=== PATIENT | male | born 1975 | race Caucasian/White ===

== ENCOUNTER 2022-08-01 07:16 | Emergency (ER) | payer OTHER ==
[2022-08-01] MEDS ORDERED: Sodium Chloride 0.9% 1000 ML 1,000 ML IV STA (07:41)
[2022-08-01] MEDS ORDERED: Hydromorphone 1 mg/ml Injection IV ONE (07:41)
[2022-08-01] MEDS ORDERED: Zofran 4 MG/2 ML VIAL IV ONE (07:41)
--- NOTE | 2022-08-01 07:41 | ERPHSYRPT ---
- History of Present Illness Time Seen by Provider: 08/01/22 07:25 Historian: patient Exam Limitations: no limitations Patient Subjective Stated Complaint: pt co abd pain to right side of abd since last night, no vomiting or fever Triage Nursing Assessment: pt alert, resp easy, face mask in place, able to walk in, skin w.d.p abd soft and pain with palpation Physician History: This is a 47-year-old white male patient of Dr. Donato who has had no prior abdominal surgeries but has a [employer] back stimulator implanted for chronic back pain and presents with right lower quadrant abdominal pain that began last evening and worsened throughout the night. The pain is significant enough to keep him awake throughout the night and morning. He has had no nausea and vomiting. He does not have an appetite but he is thirsty. He has had no diarrhea. He has no fevers. He has no chest pain. He is not short of breath. He has no cough. He has never had pain like this before. Patient has a history of diabetes and depression. Timing/Duration: yesterday Activities at Onset: none Quality: sharpness, stabbing Abdominal Pain Onset Location: RLQ Pain Radiation: no radiation Severity of Pain-Max: moderate Severity of Pain-Current: moderate Associated Symptoms: loss of appetite, No chest pain, No diarrhea, No fever/ch ills, No vomiting Previous symptoms: no prior history Allergies/Adverse Reactions: allopurinol Allergy (Verified 08/01/22 07:28) Home Medications: Linagliptin/Metformin HCl [Jentadueto Xr 5 mg-1,000 mg Tb] 1 ea DAILY 08/01/22 [History] Venlafaxine HCl 37.5 mg [Effexor 37.5 mg] 2 ea DAILY 08/01/22 [History] Venlafaxine HCl [Venlafaxine HCl ER] 1 ea DAILY 08/01/22 [History] Hx Tetanus, Diphtheria Vaccination/Date Given: No Hx Influenza Vaccination/Date Given: No Hx Pneumococcal Vaccination/Date Given: No Immunizations Up to Date: Yes Travel Risk - International Travel Have you traveled outside of the country in past 3 weeks: No - Coronavirus Screening Are you exhibiting any of the following symptoms?: No Close contact with a COVID-19 positive Pt in past 14-21 Days: No - Vaccine Status Have you recieved a Covid-19 vaccination: No - Review of Systems Constitutional: No Symptoms Eyes: No Symptoms Ears, Nose, & Throat: No Symptoms Respiratory: No Symptoms Cardiac: No Symptoms Abdominal/Gastrointestinal: Abdominal Pain, Appetite Changes, No Nausea, No Vomiting, No Diarrhea, No Constipation Genitourinary Symptoms: No Symptoms Musculoskeletal: No Symptoms Skin: No Symptoms Neurological: No Symptoms Psychological: No Symptoms Endocrine: No Symptoms Hematologic/Lymphatic: No Symptoms Immunological/Allergic: No Symptoms All Other Systems: Reviewed and Negative - Past Medical History Pertinent Past Medical History: Yes Endocrine Medical History: Diabetes Type II Psycho-Social History: Depression Other Medical History: nerve stimullator - Past Surgical History Past Surgical History: Yes Musculoskeletal: Orthopedic Surgery Other Surgical History: back x4,neck - Social History Smoking Status: Current some day smoker Exposure to second hand smoke: Yes Drug Use: none - Nursing Vital Signs Nursing Vital Signs: Initial Vital Signs Temperature 97.2 F 08/01/22 07:22 Pulse Rate 99 H 08/01/22 07:22 Respiratory Rate 18 08/01/22 07:22 Blood Pressure 154/89 08/01/22 07:22 O2 Sat by Pulse Oximetry 100 08/01/22 07:22 Pain Scale Pain Intensity 2 - Physical Exam General Appearance: no apparent distress, alert, anxiety Eye Exam: PERRL/EOMI, eyes nml inspection Ears, Nose, Throat Exam: normal ENT inspection, moist mucous membranes Neck Exam: normal inspection, non-tender, supple, full range of motion Respiratory Exam: normal breath sounds, lungs clear, airway intact, No chest tenderness, No respiratory distress Cardiovascular Exam: regular rate/rhythm, normal heart sounds, normal peripheral pulses Gastrointestinal/Abdomen Exam: soft, normal bowel sounds, tenderness (Right lower quadrant), guarding (Right lower quadrant), rebound (Right lower quadrant) Rectal Exam: not done Back Exam: normal inspection, normal range of motion, No CVA tenderness, No vertebral tenderness Extremity Exam: normal inspection, normal range of motion, pelvis stable Neurologic Exam: alert, oriented x 3, cooperative, trace clerk II-XII nml as tested, normal mood/affect, nml cerebellar function, nml station & gait, sensation nml Skin Exam: normal color, warm, dry Lymphatic Exam: No adenopathy SpO2 Interpretation: normal SpO2: 100 O2 Delivery: Room Air - Course Nursing assessment & vital signs reviewed: Yes Ordered Tests: Active Orders 24 hr Category Date Time Status IV Insertion STAT Care 08/01/22 07:41 Active ABDOMEN AND PELVIS W/0 CONTRAS [CT] Stat Exams 08/01/22 07:41 Completed AMYLASE Stat Lab 08/01/22 07:36 Completed CBC W DIFF Stat Lab 08/01/22 07:36 Completed CMP Stat Lab 08/01/22 07:36 Completed LIPASE Stat Lab 08/01/22 07:36 Completed UA W/RFX CULTURE Stat Lab 08/01/22 09:07 Completed Medication Summary Discontinued Medications Generic Name Dose Route Start Last Admin Trade Name Freq PRN Reason Stop Dose Admin Hydromorphone HCl 1 mg 08/01/22 07:41 08/01/22 07:56 Hydromorphone 1 Mg/1ml Inj 1 Mg/Ml Syringe IV 08/01/22 07:42 1 mg STAT ONE Administration Hydromorphone HCl Confirm 08/01/22 07:54 Hydromorphone 1 Mg/1ml Inj 1 Mg/Ml Syringe Administered 08/01/22 07:55 Dose 1 mg .ROUTE .STK-MED ONE Sodium Chloride 1,000 mls @ 999 mls/hr 08/01/22 07:41 08/01/22 10:01 Sodium Chloride 0.9% 1000 Ml IV 08/01/22 08:41 Infused .Q1H1M STA Infusion Sodium Chloride Confirm 08/01/22 07:54 Sodium Chloride 0.9% 1000 Ml Administered 08/01/22 07:55 Dose 1,000 mls @ ud .ROUTE .STK-MED ONE Ondansetron HCl 4 mg 08/01/22 07:41 08/01/22 07:57 Ondansetron Hcl 4 Mg/2 Ml Vial IV 08/01/22 07:42 4 mg STAT ONE Administration Ondansetron HCl Confirm 08/01/22 07:53 Ondansetron Hcl 4 Mg/2 Ml Vial Administered 08/01/22 07:54 Dose 4 mg .ROUTE .STK-MED ONE Lab/Rad Data: Laboratory Result Diagrams 08/01/22 07:36 08/01/22 07:36 Laboratory Results 08/01/22 08/01/22 08/01/22 Range/Units 09:07 07:36 07:36 WBC 11.9 H (4.0-10.5) x10^3/uL RBC 5.59 (4.1-5.6) x10^6/uL Hgb 15.8 (12.5-18.0) g/dL Hct 47.1 (42-50) % MCV 84.3 (78-100) fL MCH 28.3 (26-32) pg MCHC 33.5 (32-36) g/dL RDW 13.9 (11.5-14.0) % Plt Count 209 (150-450) x10^3/uL MPV 8.7 (7.5-11.0) fL Gran % 68.5 H (36.0-66.0) % Immature Gran % (Auto) 0.4 (0.00-0.4) % Nucleat RBC Rel Count 0.0 (0.00-0.1) % Eos # (Auto) 0.23 (0-0.5) x10^3/uL Immature Gran # (Auto) 0.05 H (0.00-0.03) x10^3u/L Absolute Lymphs (auto) 2.58 (1.0-4.6) x10^3/uL Absolute Monos (auto) 0.81 (0.0-1.3) x10^3/uL Absolute Nucleated RBC 0.00 (0.00-0.01) x10^3u/L Lymphocytes % 21.8 L (24.0-44.0) % Monocytes % 6.8 (0.0-12.0) % Eosinophils % 1.9 (0.00-5.0) % Basophils % 0.6 (0.0-0.4) % Absolute Granulocytes 8.12 H (1.4-6.9) x10^3/uL Basophils # 0.07 (0-0.4) x10^3/uL Sodium 136 L (137-145) mmol/L Potassium 4.0 (3.5-5.1) mmol/L Chloride 102 (98-107) mmol/L Carbon Dioxide 24 (22-30) mmol/L Anion Gap 14.8 (5-15) MEQ/L BUN 12 (9-20) mg/dL Creatinine 0.94 (0.66-1.25) mg/dL Estimated GFR > 60.0 ML/MIN Glucose 219 H (74-106) mg/dL Calcium 9.0 (8.4-10.2) mg/dL Total Bilirubin 0.80 (0.2-1.3) mg/dL AST 24 (17-59) U/L ALT 29 (0-50) U/L Alkaline Phosphatase 117 (38-126) U/L Serum Total Protein 7.9 (6.3-8.2) g/dL Albumin 4.3 (3.5-5.0) g/dL Amylase 63 (30-110) U/L Lipase 106 (23-300) U/L Urinalys Dipstick Clnc MAIN LAB Urine Color YELLOW (YELLOW) Urine Appearance CLEAR (CLEAR) Urine pH 5.5 (5-6) Ur Specific [place] >=1.030 (1.005-1.025) POC Urine Protein Conf TRACE (Negative) Urine Ketones NEGATIVE (NEGATIVE) Urine Nitrite NEGATIVE (NEGATIVE) Urine Bilirubin NEGATIVE (NEGATIVE) Urine Urobilinogen 0.2 (0-1) mg/dL Urine Leukocytes NEGATIVE (NEGATIVE) Urine WBC (Auto) 0-2 (0-5) /HPF Urine RBC (Auto) 0-2 (0-2) /HPF U Epithel Cells (Auto) FEW (FEW) /HPF Urine Bacteria (Auto) RARE (NEGATIVE) /HPF Urine RBC NEGATIVE (0-5) Stu/ul Urine Mucus (Auto) SLIGHT (NEGATIVE) /HPF Ur Culture Indicated? NO Urine Glucose 500 (NEGATIVE) mg/dL - Progress Progress: improved, pain not gone completely Progress Note: 08/01/22 08:42 CAT scan of the abdomen pelvis without contrast shows a normal appendix. There is fecal stasis present. No acute intra-abdominal or intrapelvic abnormality. Counseled pt/family regarding: lab results, diagnosis, need for follow-up, rad results - Departure Departure Disposition: Home Clinical Impression: Constipation Condition: Stable Critical Care Time: No Referrals: JLUIS DONATO MD [Primary Care Provider] - Follow up/PCP as directed Additional Instructions: Drink plenty of clear liquids. Do not advance your diet until you are drinking clear liquids well. Use MiraLAX [id number]. May also obtain fleets enema [id number] and follow the directions for this medication. Increase your activity. Return to the emergency department for symptoms worsen. Follow-up with your primary care physician to make arrangements for an outpatient colonoscopy if indicated.
[2022-08-01 07:52] LABS: Absolute Neutrophil Ct (ANC) 8.12 x10^3/uL (1.4-6.9); Basophil (Absolute #) 0.07 x10^3/uL (0-0.4); Eosinophil % 1.9 % (0.00-5.0); Eosinophil (Absolute #) 0.23 x10^3/uL (0-0.5); Hematocrit 47.1 % (42-50); Hemoglobin 15.8 g/dL (12.5-18.0); Lymphocyte (Absolute #) 2.58 x10^3/uL (1.0-4.6); Lymphocytes % 21.8 % (24.0-44.0); Mean Cell Volume 84.3 fL (78-100); Mean Corpuscular Hemoglobin 28.3 pg (26-32); Mean Corpuscular Hgb Concent. 33.5 g/dL (32-36); Mean Platelet Volume 8.7 fL (7.5-11.0); Monocyte (Absolute #) 0.81 x10^3/uL (0.0-1.3); Monocytes % 6.8 % (0.0-12.0); Neutrophil % 68.5 % (36.0-66.0); Platelet Count 209 x10^3/uL (150-450); Red Blood Count 5.59 x10^6/uL (4.1-5.6); Red Cell Distribution Width 13.9 % (11.5-14.0); White Blood Count 11.9 x10^3/uL (4.0-10.5)
[2022-08-01] MEDS ORDERED: Zofran 4 MG/2 ML VIAL ONE (07:53)
[2022-08-01] MEDS ORDERED: Sodium Chloride 0.9% 1000 ML 1,000 ML ONE (07:54)
[2022-08-01] MEDS ORDERED: Hydromorphone 1 mg/ml Injection ONE (07:54)
[2022-08-01 08:05] LABS: ALBUMIN 4.3 g/dL (3.5-5.0); ALKALINE PHOSPHATASE 117 U/L (38-126); AMYLASE 63 U/L (30-110); ANION GAP 14.8 MEQ/L (5-15); BLOOD UREA NITROGEN 12 mg/dL (9-20); CHLORIDE 102 mmol/L (98-107); Carbon Dioxide 24 mmol/L (22-30); Creatinine 1 0.94 mg/dL (0.66-1.25); EST GLOMERULAR FILTRATION RATE > 60.0 ML/MIN; Glucose 219 mg/dL (74-106); LIPASE 106 U/L (23-300); SGOT/AST 24 U/L (17-59); SGPT/ALT 29 U/L (0-50); SODIUM 136 mmol/L (137-145); Total Protein 7.9 g/dL (6.3-8.2)
--- NOTE | 2022-08-01 08:36 | XRAY ---
Indication: Lower abdomen/right lower quadrant pain. Multiple contiguous axial images obtained through the abdomen and pelvis without contrast. Comparison: None Lung bases clear. Heart not enlarged. Noncontrasted stomach and bowel loops appear nonobstructed with normal appendix. Mild diffuse scattered colonic fecal debris throughout and mild descending/sigmoid diverticulosis without diverticulitis. No free fluid/air. Incidental 3.8 cm left adrenal adenoma, 1.8 cm right renal cyst, fatty hepatomegaly measuring 24.2 cm,14.4 cm splenomegaly, and left lower back epidural stimulator device/lead. Remaining liver, gallbladder, pancreas, spleen adrenal glands, kidneys, ureters, bladder, and aorta are unremarkable for noncontrast exam. Osseous structures intact with minimal degenerative changes throughout the thoracolumbar spine. Small fatty left inguinal hernia. Impression: 1. Mild diffuse fecal stasis, colonic diverticulosis, left adrenal adenoma, right renal cyst, fatty hepatomegaly, splenomegaly, fatty left inguinal hernia, and degenerative spondylosis. 2. Remaining CT abdomen/pelvis without contrast exam is negative.
[2022-08-01 09:28] LABS: Mucus SLIGHT /HPF (NEGATIVE)
[2022-08-01 10:03] VITALS: PULSE 88
[2022-08-01 10:03] LABS: Appearance CLEAR (CLEAR); Bacteria RARE /HPF (NEGATIVE); Bilirubin NEGATIVE (NEGATIVE); Epithelial Cells FEW /HPF (FEW); Glucose 500 mg/dL (NEGATIVE); Ketones NEGATIVE (NEGATIVE); Nitrite NEGATIVE (NEGATIVE); Ph 5.5 (5-6); Protein,Urine Dip TRACE (Negative); RBC 0-2 /HPF (0-2); RBC NEGATIVE Ery/ul (0-5); Specific Gravity >=1.030 (1.005-1.025); Urobilinogen 0.2 mg/dL (0-1); WBC 0-2 /HPF (0-5)
[2022-08-01 10:04] LABS: Urine Cultured Indicated? NO
[2022-08-01 10:15] LABS: Dipstick done @ ? MAIN LAB
[2022-08-01 10:30] VITALS: O2SAT 100
[2022-08-01 10:52] VITALS: BP 148/92
== END 2022-08-01 10:53 | disposition home or self-care (01) ==
LOC: ED 07:16
DX: K59.00 Constipation, unspecified (principal); R10.31 Right lower quadrant pain; E11.9 Type 2 diabetes mellitus without complications; Z72.0 Tobacco use; Z79.84 Long term (current) use of oral hypoglycemic drugs; Z79.899 Other long term (current) drug therapy; Z28.310 Unvaccinated for COVID-19
CPT/HCPCS: 36415; 74176; 80053; 81015; 82150; 83690; 85025; 96360; 96374; 96375; 99284; J1170; J2405